=== PATIENT | female | born 1995 | race American Indian/Alaskan Native ===

== ENCOUNTER 2017-10-13 20:12 | Emergency (ER) | payer SELFPAY ==
[2017-10-13 21:41] LABS: Bilirubin,Urine NEG (Negative); Blood,Urine LG (Negative); Color,Urine Yellow (Yellow); Mucus,Urine 3+ /HPF; Nitrite,Urine NEG (Negative); Urobilinogen,Urine < 2.0 mg/dL (<2.0)
[2017-10-13 21:44] LABS: Basophils % (Auto) 0.4 % (0.0-1.8); Eosinophils % (Auto) 0.3 % (0.0-4.3); Hematocrit 38.3 % (30.3-42.9); Hemoglobin 12.7 gm/dl (10.1-14.3); Lymphocytes # (Auto) 1.8 K/mm3 (1.2-5.4); Lymphocytes % (Auto) 15.9 % (13.4-35.0); Mean Corpuscular HGB Conc 33 % (30-34); Mean Corpuscular Hemoglobin 33 pg (28-32); Mean Corpuscular Volume 98 fl (79-97); Monocytes % (Auto) 8.8 % (0.0-7.3); Platelet Count 235 K/mm3 (140-440); Red Cell Distribution Width 15.3 % (13.2-15.2)
[2017-10-13 21:44] LABS: HCG Qualitative,Urine Negative (Negative)
[2017-10-13 22:04] LABS: Alanine Aminotransferase 9 units/L (7-56); Albumin 4.6 g/dL (3.9-5); BUN/Creatinine Ratio 24; Blood Urea Nitrogen 19 mg/dL (7-17); Calcium 9.5 mg/dL (8.4-10.2); Hemolysis Index 34
--- NOTE | 2017-10-14 04:44 | Emergency Department Report ---
ED General Adult HPI - General Chief complaint: Abdominal Pain Stated complaint: ABDOMINAL PAIN Time Seen by Provider: 10/14/17 03:44 Source: patient, RN notes reviewed Mode of arrival: Ambulatory Limitations: No Limitations - History of Present Illness Initial comments: This is a 22-year-old female, the patient is previously unknown to this provider , she does not have a primary care doctor and she denies a history of abdominal surgeries. She presents to the ER with a complaint of abdominal pain and rectal discomfort. The abdominal pain has been present intermittently over the past week. It was initially epigastric and now it is suprapubic and in the bilateral lower quadrants. It is sharp and achy, increases with palpation and decreases with rest. Patient endorses constipation and some discomfort with urination. However she denies pain with urination. -: Gradual Location: abdomen Quality: aching Consistency: intermittent Improves with: rest Worsens with: movement Associated Symptoms: malaise, other (discomfort with urination). denies: confusion, chest pain, cough, diaphoresis, fever/chills, headaches, loss of appetite, nausea/vomiting, rash, seizure, shortness of breath, syncope, weakness - Related Data Previous Rx's Medication Instructions Recorded Last Taken Type Doxycycline [Vibramycin] 100 mg PO Q12HR #28 capsule 10/14/17 Unknown Rx Ibuprofen [Motrin] 600 mg PO Q8H PRN #30 tablet 10/14/17 Unknown Rx Ondansetron [Zofran Odt] 4 mg PO Q8HR PRN #20 tab.rapdis 10/14/17 Unknown Rx oxyCODONE [Roxicodone] 5 mg PO Q6HR PRN #10 tablet 10/14/17 Unknown Rx Allergies Allergy/AdvReac Type Severity Reaction Status Date / Time influenza virus vaccine, Allergy Unknown Verified 10/13/17 20:56 specific ED Review of Systems ROS: Stated complaint: ABDOMINAL PAIN Other details as noted in HPI ED Past Medical Hx - Past Medical History Previous Medical History?: No - Social History Smoking Status: Unknown if ever smoked Substance Use Type: None - Medications Home Medications: Home Medications Medication Instructions Recorded Confirmed Last Taken Type Doxycycline [Vibramycin] 100 mg PO Q12HR #28 capsule 10/14/17 Unknown Rx Ibuprofen [Motrin] 600 mg PO Q8H PRN #30 tablet 10/14/17 Unknown Rx Ondansetron [Zofran Odt] 4 mg PO Q8HR PRN #20 tab.rapdis 10/14/17 Unknown Rx oxyCODONE [Roxicodone] 5 mg PO Q6HR PRN #10 tablet 10/14/17 Unknown Rx ED Physical Exam - General Limitations: No Limitations General appearance: alert, in no apparent distress - Head Head exam: Present: atraumatic, normocephalic - Eye Eye exam: Present: normal appearance, EOMI. Absent: nystagmus - ENT ENT exam: Present: normal exam, normal orophraynx, mucous membranes moist, normal external ear exam - Neck Neck exam: Present: normal inspection, full ROM - Respiratory Respiratory exam: Present: normal lung sounds bilaterally. Absent: respiratory distress - Cardiovascular Cardiovascular Exam: Present: regular rate, normal rhythm, normal heart sounds. Absent: systolic murmur, diastolic murmur, rubs, gallop - GI/Abdominal GI/Abdominal exam: Present: soft, tenderness, normal bowel sounds, other (there is bilateral lower quadrant tenderness.). Absent: distended, guarding, rebound , rigid, bruit, pulsatile mass, hernia - Rectal Rectal exam: Present: normal inspection, normal rectal tone, other (escorted by nurse Naomi Cuevas) - External exam: Present: normal external exam Speculum exam: Present: normal speculum exam. Absent: cervical discharge, vaginal bleeding Bi-manual exam: Present: cervical motion tendernes, adnexal tenderness, uterine tenderness, other (escorted by nurse Naomi Angelo) - Extremities Exam Extremities exam: Present: normal inspection, full ROM, normal capillary refill. Absent: tenderness, pedal edema, joint swelling, calf tenderness - Back Exam Back exam: Present: normal inspection, full ROM. Absent: tenderness, CVA tenderness (R), paraspinal tenderness, vertebral tenderness - Neurological Exam Neurological exam: Present: alert, oriented X3, CN II-XII intact, normal gait, other (Extraocular movements intact. Tongue midline. No facial droop. Facial sensation intact to light touch in the V1, V2, V3 distribution bilaterally. 5 and 5 strength in 4 extremities.. Sensation is intact to light touch in 4 extremities.). Absent: motor sensory deficit - Psychiatric Psychiatric exam: Present: normal affect, normal mood - Skin Skin exam: Present: warm, dry, intact, normal color. Absent: rash ED Course Vital Signs 10/13/17 10/13/17 20:45 20:54 Temperature 98.3 F 98.3 F Pulse Rate 89 95 H Respiratory 18 18 Rate Blood Pressure 111/74 111/74 O2 Sat by Pulse 98 98 Oximetry - Reevaluation(s) Reevaluation #1: 10/14/17 06:03 Differential diagnosis, including but not limited to: Pelvic inflammatory disease, constipation, appendicitis Assessment and plan: 22-year-old female with nonspecific abdominal pain, bilateral lower quadrant tenderness, cervical motion tenderness, adnexal tenderness bilaterally, urinalysis suggests but is not conclusive for Chlamydia cystitis. Pelvic ultrasound pending. CT scan of the abdomen and pelvis is pending. The patient will be treated with pain medication, and she'll be treated empirically for pelvic inflammatory disease, which is by favored diagnosis. Her rectal exam is unremarkable, and the remainder of physical exam is also unremarkable Reevaluation #2: 10/14/17 06:22 Pelvic ultrasound negative for significant findings. CT scan is pending. Reevaluation #3: 10/14/17 06:[address] Michael Borja, he will follow up on CT scan, assuming no surgical findings, patient will be discharged with presumptive diagnosis of pelvic inflammatory disease. 10/14/17 07:02 ED Medical Decision Making - Lab Data Result diagrams: 10/13/17 21:22 10/13/17 21:22 Lab Results 10/13/17 10/13/17 10/13/17 Range/Units 21:13 21:22 21:22 WBC 11.1 H (4.5-11.0) K/mm3 RBC 3.90 (3.65-5.03) M/mm3 Hgb 12.7 (10.1-14.3) gm/dl Hct 38.3 (30.3-42.9) % MCV 98 H (79-97) fl MCH 33 H (28-32) pg MCHC 33 (30-34) % RDW 15.3 H (13.2-15.2) % Plt Count 235 (140-440) K/mm3 Lymph % (Auto) 15.9 (13.4-35.0) % [place] % (Auto) 8.8 H (0.0-7.3) % Eos % (Auto) 0.3 (0.0-4.3) % Baso % (Auto) 0.4 (0.0-1.8) % Lymph # 1.8 (1.2-5.4) K/mm3 [place] # 1.0 H (0.0-0.8) K/mm3 Eos # 0.0 (0.0-0.4) K/mm3 Baso # 0.0 (0.0-0.1) K/mm3 Seg Neutrophils % 74.6 H (40.0-70.0) % Seg Neutrophils # 8.3 H (1.8-7.7) K/mm3 Sodium 138 (137-145) mmol/L Potassium 4.0 (3.6-5.0) mmol/L Chloride 100.0 (98-107) mmol/L Carbon Dioxide 25 (22-30) mmol/L Anion Gap 17 mmol/L BUN 19 H (7-17) mg/dL Creatinine 0.8 (0.7-1.2) mg/dL Estimated GFR > 60 ml/min BUN/Creatinine Ratio 24 % Glucose 89 (65-100) mg/dL Calcium 9.5 (8.4-10.2) mg/dL Total Bilirubin 0.60 (0.1-1.2) mg/dL AST 17 (5-40) units/L ALT 9 (7-56) units/L Alkaline Phosphatase 51 (35-129) units/L Total Protein 7.5 (6.3-8.2) g/dL Albumin 4.6 (3.9-5) g/dL Albumin/Globulin Ratio 1.6 % Urine Color Yellow (Yellow) Urine Turbidity Cloudy (Clear) Urine pH 5.0 (5.0-7.0) Ur Specific [place] 1.035 H (1.003-1.030) Urine Protein 30 mg/dl (Negative) mg/dL Urine Glucose (UA) Neg (Negative) mg/dL Urine Ketones Neg (Negative) mg/dL Urine Blood Lg (Negative) Urine Nitrite Neg (Negative) Urine Bilirubin Neg (Negative) Urine Urobilinogen < 2.0 (<2.0) mg/dL Ur Leukocyte Esterase Lg (Negative) Urine WBC (Auto) 19.0 H (0.0-6.0) /HPF Urine RBC (Auto) 5.0 (0.0-6.0) /HPF U Epithel Cells (Auto) 6.0 (0-13.0) /HPF Urine Mucus 3+ /HPF Urine HCG, Qual Negative (Negative) - Radiology Data Radiology results: pending Critical care attestation.: If time is entered above; I have spent that time in minutes in the direct care of this critically ill patient, excluding procedure time. ED Disposition Clinical Impression: Abdominal pain Disposition: DC-01 TO HOME OR SELFCARE Is pt being admited?: No Does the pt Need Aspirin: No Condition: Stable Instructions: Pelvic Inflammatory Disease (ED) Additional Instructions: As we discussed, your laboratory studies appeared to be within normal limits. You are not . The CAT scan your abdomen/pelvis did not demonstrate any acute disease or pathology that would require emergency surgery, or antibiotic therapy. In fact, CAT scan appeared to be within normal limits, except for the suggestion of constipation, and fibroids in the uterus. The addition, your pelvic ultrasound was within normal limits. Given all this, you'll be treated empirically for disease called pelvic inflammatory disease. We typically treat young females with unexplained lower abdominal pain to protect your ability to have children safely in the future. Cultures were sent today, and results will be available next 3-5 days. Please have your primary care doctor call the medical records department to obtain your culture results. Take the antibiotic therapy as directed. Take the nausea medication and pain medication as directed. I recommend outpatient testing for sexually transmitted diseases, including hepatitis, syphilis and HIV. I also recommend that you abstain from sexual activity until you have completed her antibiotic therapy, a physician states that it is safe for you to resume sexual activity, and any partners that you have been sexually active with have been tested/treated/evaluated for sexual transmitted diseases. Please follow-up with physician within 3-5 days. I recommend that you return to the ER right away with worsening pain, migration of pain, intractable nausea/vomiting, inability tolerate liquid feeds. Prescriptions: Doxycycline [Vibramycin] 100 mg PO Q12HR #28 capsule Ibuprofen [Motrin] 600 mg PO Q8H PRN #30 tablet PRN Reason: Pain Ondansetron [Zofran Odt] 4 mg PO Q8HR PRN #20 tab.rapdis PRN Reason: Nausea oxyCODONE [Roxicodone] 5 mg PO Q6HR PRN #10 tablet PRN Reason: Pain Referrals: PRIMARY CARE, [Primary Care Provider] - 3-5 Days [facility] [Provider Group] - 3-5 Days [facility] [Provider Group] - 3-5 Days [facility] [Provider Group] - 3-5 Days
[2017-10-14] MEDS ORDERED: NACL 0.9% 1000 ML 1,000 ML IV ONE (05:02)
[2017-10-14] MEDS ORDERED: TORADOL IV ONE (05:02)
[2017-10-14] MEDS ORDERED: SUBLIMAZE IV ONE (05:03)
[2017-10-14] MEDS ORDERED: VIBRAMYCIN PO ONE (05:03)
[2017-10-14] MEDS ORDERED: cefTRIAXone 0.25 GM in NACL 0.9% 20 ML IV ONE (05:15)
--- NOTE | 2017-10-14 06:21 | Ultrasound Report ---
FINAL REPORT EXAM: US PELVIS DUPLEX DOPPLER COMP HISTORY: suspect pelvic inflammatory disease TECHNIQUE: Transabdominal imaging was obtained of the pelvis. FINDINGS: The uterus is anteverted measuring 8 cm x 3.6 cm x 4.7 cm. The myometrium is homogeneous. The endometrium measures 3.9 millimeters in thickness and is homogeneous. There is minimal free fluid the pelvis. The right ovary is normal size contour and echotexture measuring 4.5 cm x 4.4 cm x 4.3 cm. The left ovary is normal size contour and echotexture measuring 2.8 cm x 2.6 cm x 2.3 cm. IMPRESSION: Normal appearing uterus and ovaries. Minimal free fluid the pelvis.
--- NOTE | 2017-10-14 06:22 | Ultrasound Report ---
FINAL REPORT EXAM: US TRANSVAGINAL HISTORY: suspect pelvic inflammatory disease TECHNIQUE: Routine transvaginal imaging was obtained the pelvis including Doppler interrogation of the adnexa. FINDINGS: The uterus is anteverted measuring 8 cm x 3.6 cm x 4.7 cm. The myometrium is homogeneous. The endometrium is homogeneous measuring 3.9 millimeters in the disc. There is minimal free fluid in the cul-de-sac. The right ovary is normal size contour blood flow and echotexture measuring 4.5 cm x 4.4 cm x 4.3 cm. There are benign-appearing follicles in the right ovary. The left ovary is normal size contour blood flow and echotexture measuring 2.8 cm x 2.6 cm x 2.3 cm. There are benign-appearing follicles in left ovary. IMPRESSION: Normal-appearing uterus and ovaries. Minimal free fluid in cul-de-sac.
--- NOTE | 2017-10-14 07:09 | Cat Scan Report ---
FINAL REPORT EXAM: CT ABDOMEN PELVIS W CON HISTORY: lower abd pain deep pelvic pain TECHNIQUE: Routine axial imaging was obtained of the abdomen and pelvis following the intravenous injection of 100 cc of Omnipaque 300. Delayed axial imaging was also obtained for evaluation of the kidneys and ureters. Coronal and parasagittal reconstructions were reviewed. FINDINGS: The lung bases are clear. Pleural fluid is not seen. The liver, gallbladder, pancreas, spleen, and adrenal glands appear normal. The kidneys enhance normally. There is no evidence of hydronephrosis. The vascular structures enhance normally. Overall the bowel loops are normal in caliber. There are multiple nondistended fluid-filled loops of small bowel in the pelvis. Very mild enteritis cannot entirely be excluded. There is no evidence of free fluid or adenopathy. The uterus and adnexa appear normal. The bladder appears normal. The appendix is not seen with certainty. The skeletal structures appear well maintained IMPRESSION: Multiple fluid-filled nondistended loops of small bowel noted in the pelvis. A very mild enteritis cannot entirely be excluded. No evidence of bowel obstruction or other acute process otherwise. The appendix is not identified. No acute process in the upper abdomen.
[2017-10-14 08:38] VITALS: BP 106/63
== END 2017-10-14 08:39 | disposition home or self-care (01) ==
LOC: ED 20:12
DX: R10.31 Right lower quadrant pain (principal); R10.32 Left lower quadrant pain; R30.0 Dysuria; K59.00 Constipation, unspecified; Z88.7 Allergy status to serum and vaccine
CPT/HCPCS: 36415; 74177; 76830; 80053; 81001; 81025; 85025; 87210; 87591; 93975; 96365; 96375; 99285; J0696; J1885; J3010; J7030; Q9967